=== PATIENT | female | born 1995 | race American Indian/Alaskan Native ===

== ENCOUNTER 2019-11-09 07:43 | Emergency (ER) | payer SELFPAY ==
[2019-11-09] MEDS ORDERED: IBUPROFEN 800 MG TAB PO ONE (09:42)
--- NOTE | 2019-11-09 09:42 | Emergency Department Report ---
[place] [facility] Chief Complaint: Urogenital-Female Stated Complaint: KIDNEY INFECTION Time Seen by Provider: 11/09/19 09:38 ED Review of Systems ROS: Stated complaint: KIDNEY INFECTION Other details as noted in HPI ED Past Medical Hx - Past Medical History Previous Medical History?: Yes Additional medical history: pt presents to ed with complaint of frequent urination - Surgical History Past Surgical History?: No - Social History Smoking Status: Never Smoker Substance Use Type: None - Medications Home Medications: Home Medications Medication Instructions Recorded Confirmed Last Taken Type Fluconazole [Diflucan TAB] 100 mg PO QDAY #2 tablet 11/09/19 Unknown Rx levoFLOXacin [Levaquin TAB] 500 mg PO QDAY #10 tablet 11/09/19 Unknown Rx metroNIDAZOLE [Flagyl] 2,000 mg PO ONCE #4 tablet 11/09/19 Unknown Rx Dysuria Exam - Exam General: Vital signs noted. No distress. Alert and acting appropriately. ED Course Vital Signs 11/09/19 07:52 Temperature 99 F Pulse Rate 119 H Respiratory 15 Rate Blood Pressure 138/75 O2 Sat by Pulse 99 Oximetry ED Medical Decision Making - Lab Data Result diagrams: 11/09/19 11:04 11/09/19 11:04 Critical care attestation.: If time is entered above; I have spent that time in minutes in the direct care of this critically ill patient, excluding procedure time. ED Disposition Clinical Impression: Kidney infection Disposition: DC-01 TO HOME OR SELFCARE Is pt being admited?: No Does the pt Need Aspirin: No Condition: Stable Instructions: Urinary Tract Infection in Women (ED) Additional Instructions: FOLLOW UP WITH PCP REFERRAL BELOW FOLLOW UP WITH OBGYN REFERRAL BELOW SAFE SEX STAY WELL HYDRATED MEDS ORDERED TODAY DIET AND ACTIVITY TOLERATED Referrals: HAIM GOMEZ MD [Staff Physician] - 3-5 Days KAMAR GUILLEN MD [Staff Physician] - 3-5 Days Time of Disposition: 13:50
[2019-11-09 10:08] LABS: Bacteria,Urine 1+ /HPF (Negative); Bilirubin,Urine NEG (Negative); Blood,Urine LG (Negative); Color,Urine Yellow (Yellow); HCG Qualitative,Urine Negative (Negative); Mucus,Urine FEW /HPF; Urobilinogen,Urine < 2.0 mg/dL (<2.0)
[2019-11-09 10:09] LABS: WBC,Urine > 182.0 /HPF (0.0-6.0)
[2019-11-09] MEDS ORDERED: cefTRIAXone/NS 1 GM/50 ML 1 GM/50 ML BAG IV ONE (10:23)
[2019-11-09] MEDS ORDERED: SODIUM CHLORIDE 0.9% 1000 ML 1,000 ML IV ONE ×2 (10:23→13:21)
[2019-11-09 11:13] LABS: Hematocrit 37.8 % (30.3-42.9); Hemoglobin 12.8 gm/dl (10.1-14.3); Mean Corpuscular HGB Conc 34 % (30-34); Mean Corpuscular Volume 79 fl (79-97); Platelet Count 347 K/mm3 (140-440); Red Blood Count 4.81 M/mm3 (3.65-5.03)
[2019-11-09 11:42] LABS: Alanine Aminotransferase 9 units/L (7-56); Albumin 4.3 g/dL (3.9-5); BUN/Creatinine Ratio 8; Blood Urea Nitrogen 7 mg/dL (7-17); Calcium 9.5 mg/dL (8.4-10.2); Hemolysis Index 45
[2019-11-09 11:58] LABS: Basophils % (Manual) 0 % (0.0-1.8); Eosinophils % (Manual) 0 % (0.0-4.3); Platelet Estimate Consistent w Auto; RBC Morphology Normal; Total Cells Counted 100
--- NOTE | 2019-11-09 13:45 | Cat Scan Report ---
CT abdomen pelvis wo con INDICATION: back pain; fever; dysuria. TECHNIQUE: All CT scans at this location are performed using the following dose modulation technique: Automated exposure control. CONTRAST: None. COMPARISON: None available. CT ABDOMEN: The parenchymal organs are unremarkable in appearance other than a 4.3 cm cyst at the upp er pole of the left kidney, a subcentimeter cyst and minimal inflammation adjacent to both kidneys. N egative for abdominal mass, fluid collection or adenopathy. The bowel is not dilated or thickened. CT PELVIS: Negative for mass, fluid or inflammation. A small amount of free fluid is noted. The appendix is normal. IMPRESSION: 1. 4.3 cm left renal cyst. 2. Mild inflammation adjacent to both kidneys of uncertain chronicity. Negative for obstruction. 3. Mild pelvic free fluid. Signer Name: Murali Bhakta MD Signed: 11/09/2019 1:41 PM Workstation Name: [id number]
[2019-11-09] MEDS ORDERED: AZITHROMYCIN 250 MG TAB PO ONE (13:48)
[2019-11-09 15:24] VITALS: BP 135/78
== END 2019-11-09 15:23 | disposition home or self-care (01) ==
LOC: ED 07:43
DX: N15.9 Renal tubulo-interstitial disease, unspecified (principal); Z79.899 Other long term (current) drug therapy
CPT/HCPCS: 36415; 74176; 80053; 81001; 81025; 85007; 85025; 96365; 99284; J0696; J7030